=== PATIENT | female | born 1955 | race Caucasian/White ===

== ENCOUNTER → 2018-04-30 11:50 | Outpatient (CLI) | payer OTHER, SELFPAY ==
[2018-04-30 13:18] LABS: BUN Creatinine Ratio 21.4 (6-22); Blood Urea Nitrogen 15 mg/dL (7-17); Calcium 9.9 mg/dL (8.4-10.2); Carbon Dioxide 30 mmol/L (22-32); Chloride 104 mmol/L (98-107); Estimated Glomerular Filt Rate > 60.0 mL/min (>60); Glucose 105 mg/dL (80-110); HEMOLYSIS < 15 (0-50); Potassium 4.3 mmol/L (3.4-5.1); Sodium 143 mmol/L (137-145)
[2018-04-30 13:50] LABS: TSH w/ Reflex to FT4 1.32 uIU/mL (0.47-4.68)
== END ==
PROVIDERS: PCP Family Medicine; Visit Provider Family Medicine
DX: I10 Essential (primary) hypertension (principal)
CPT/HCPCS: 36415; 80048; 84443

== ENCOUNTER → 2020-06-05 09:25 | Outpatient (CLI) | payer OTHER, SELFPAY ==
[2020-06-05 10:40] LABS: Add Manual Diff / Slide Review NO; Basophils Absolute Auto 100 /uL (0-100); Basophils Percent Auto 0.9 % (0-2); Eosinophils Absolute Auto 100 /uL (0-450); Eosinophils Percent Auto 1.7 % (2-4); Hematocrit 38.9 % (36-46); Lymphocytes Absolute Auto 1900 /uL (1100-4500); Lymphocytes Percent Auto 32.5 % (25-40); Mean Corpuscular HGB Conc 33.4 % (30-36); Mean Corpuscular Hemoglobin 31.6 PG (26-34); Mean Corpuscular Volume 94.5 fL (80-100); Monocytes Absolute Auto 400 /uL (0-900); Monocytes Percent Auto 6.6 % (3-14); Neutrophils Absolute Auto 3300 /uL (1500-7000); Neutrophils Percent Auto 58.3 % (50-75); Platelet Count 303 X10^3/uL (150-400); Red Blood Cell Count 4.12 X10^6/uL (4.0-5.2); Red Cell Distribution Width 13.6 % (11.6-14.8); White Blood Cell Count 5.7 X10^3/uL (4.5-11.0)
[2020-06-05 10:48] LABS: Alanine Aminotransferase 32 IU/L (<35); Albumin 4.5 g/dL (3.5-5.0); Albumin Globulin Ratio 1.6 (1.0-2.8); Alkaline Phosphatase 83 U/L (38-126); Aspartate Aminotransferase 37 IU/L (14-36); BUN Creatinine Ratio 12.3 (6-22); Bilirubin Total 0.4 mg/dL (0.2-1.3); Blood Urea Nitrogen 9 mg/dL (7-17); Calcium 9.5 mg/dL (8.4-10.2); Carbon Dioxide 29 mmol/L (22-32); Chloride 104 mmol/L (98-107); Estimated Glomerular Filt Rate > 60.0 mL/min (>60); Globulin 2.8 g/dL (1.7-4.1); Glucose 160 mg/dL (80-110); HEMOLYSIS < 15 (0-50); Potassium 4.2 mmol/L (3.4-5.1); Sodium 138 mmol/L (137-145); Total Protein 7.3 g/dL (6.3-8.2)
[2020-06-05 11:32] LABS: TSH w/ Reflex to FT4 1.51 uIU/mL (0.47-4.68)
[2020-06-08 16:10] LABS: Hemoglobin A1C% w Est Avg Glu 5.9 % (4.0-6.0)
== END ==
PROVIDERS: PCP Family Medicine; Referring Provider Family Medicine; Visit Provider Family Medicine
DX: E66.3 Overweight (principal); I10 Essential (primary) hypertension
CPT/HCPCS: 36415; 80053; 83036; 84443; 85025

== ENCOUNTER → 2020-06-21 09:15 | Outpatient (CLI) | payer OTHER, SELFPAY ==
--- NOTE | 2020-06-21 09:17 | DI.US.S_ITS ---
PROCEDURE: US ABDOMEN LIMITED INDICATIONS: RIGHT UPPER QUADRANT PAIN TECHNIQUE: Real-time focused scanning was performed of the abdomen, with image documentation. COMPARISON: None. FINDINGS: The liver is normal in size and demonstrates no focal lesions. No findings of gallstones or sludge are seen. The gallbladder wall is not thickened, measuring 3 mm or less. No specific pericholecystic fluid is seen. The sonographic Mayfield sign is negative. There is no biliary dilatation, the common bile duct measures 4 mm. No significant pancreatic abnormality is seen on these images. No right upper quadrant free fluid can be seen. IMPRESSION: The gallbladder demonstrates a normal sonographic appearance. No biliary dilatation is seen. Dictated by: Monroe Mendoza M.D. on 06/21/2020 at 9:58 Approved by: Monroe Mendoza M.D. on 06/21/2020 at 9:58
== END ==
PROVIDERS: PCP Family Medicine; Referring Provider Surgery; Visit Provider Surgery
DX: R10.11 Right upper quadrant pain (principal); K82.4 Cholesterolosis of gallbladder
CPT/HCPCS: 76705

== ENCOUNTER → 2020-07-05 09:17 | Outpatient (CLI) | payer OTHER, SELFPAY ==
[2020-07-05 10:53] LABS: COVID19 -Nasal RAPID Negative (Negative)
== END ==
PROVIDERS: PCP Family Medicine; Visit Provider Surgery
DX: Z20.822 Contact with and (suspected) exposure to COVID-19 (principal)
CPT/HCPCS: 87635; C9803

== ENCOUNTER 2020-07-06 08:07 | Day surgery (SDC) | payer OTHER, SELFPAY ==
[2020-07-06] VITALS (7 sets, daily range): BP systolic 86–153; BP diastolic 52–85; PULSE 59–85; RESP 12–20; TEMP 36.1–36.6; O2SAT 97–100; BMI 30.9
--- NOTE | 2020-07-06 | PATH_ITS ---
[facility] Accession Number: [id number] . 01 Material submitted: . PART A: duodenum - DUODENUM PART B: stomach - STOMACH PART C: esophagus - ESOPHAGUS PART D: colon - RANDOM COLON PART E: colon - 70CM COLON POLYP PART F: colon - 50CM COLON POLYP PART G: colon - 20CM COLON POLYP . 02 Diagnosis: A. Duodenum, Biopsy: Duodenal mucosa with no diagnostic abnormality. Negative for active inflammation, features of sprue, dysplasia, or malignancy. . B. Stomach, Biopsy: Antral and body-type mucosa with no diagnostic abnormality. No evidence of Helicobacter on H/E stain. Negative for intestinal metaplasia. Negative for dysplasia and malignancy. . C. Esophagus, Biopsy: Squamous epithelium with no diagnostic abnormality. Intraepithelial eosinphils are not increased. Negative for dysplasia and malignancy. . D. Random Colon, Biopsies: Colonic mucosa with no diagnostic abnormality. Negative for active, chronic, and microscopic colitis. Negative for dysplasia and malignancy. . E. Colon, Polyp 70 cm, Biopsy: Serrated lesion, favor sessile serrated adenoma. . F. Colon, Polyp 50 cm, Biopsy: Tubular adenoma. . G. Colon, Polyp 20 cm, Biopsy: Hyperplastic polyp. [facility] 07/11/2020 1409 Local . 02 Electronically signed: . Svetlana Green MD, Pathologist NPI- [id number] . 01 Gross description: . Part A: DUODENUM: Received in formalin is 1 fragment(s) of pandey, soft tissue measuring 0.4 x 0.2 x 0.2 cm submitted entirely in 1 cassette(s) Part B: STOMACH: Received in formalin are 4 fragment(s) of pandey, soft tissue measuring 0.1 x 0.1 x 0.1 cm to 0.2 x 0.2 x 0.2 cm submitted entirely in 1 cassette(s) Part C: ESOPHAGUS: Received in formalin is 1 fragment(s) of pandey, soft tissue measuring 0.3 x 0.2 x 0.2 cm submitted entirely in 1 cassette(s) Part D: RANDOM COLON: Received in formalin is 1 fragment(s) of pandey, soft tissue measuring 0.1 x 0.1 x 0.1 cm to 0.3 x 0.2 x 0.2 cm submitted entirely in 1 cassette(s) Part E: 70CM COLON POLYP: Received in formalin are 2 fragment(s) of pandey, soft tissue measuring 0.2 x 0.2 x 0.2 cm to 03 x 0.2 x 0.2 cm submitted entirely in 1 cassette(s) Part F: 50CM COLON POLYP: Received in formalin is 1 fragment(s) of pandey, soft tissue measuring 0.3 x 0.2 x 0.2 cm submitted entirely in 1 cassette(s) Part CM COLON POLYP: Received in formalin is 1 fragment(s) of pandey, soft tissue measuring 0.2 x 0.2 x 0.2 cm submitted entirely in 1 cassette(s) /CINTHIA 07/09/2020 1758 Local . 02 Pathologist provided ICD-10: D12.6 . 02 CPT . 386967, 054737, 316700, 051141, 517119, 505776, 601443 Performed at: 01 [facility] [address] [id number] MD Ciro Santiago MD Phone: [phone] Performed at: [address] [place], [place] [id number] MD Svetlana Green MD Phone: [phone]
[2020-07-06] MEDS: SODIUM CHLORIDE 0.9% 1,000 ML 200 ML IV (08:16)
--- NOTE | 2020-07-06 10:46 | PM.PREOP ---
Pre-operative Note COVID-19 COVID-19 status: Negative Result date/Date tested (Pos, Neg/Pending): 07/05/20 Interval Note History & Physical reviewed/Exam performed by Physician: Yes Changes to H&P: No ASA Class (for procedural sedation): II
--- NOTE | 2020-07-06 10:48 | PM.OP.ENDO ---
Operative Date/Time/Diagnoses Date of procedure: 07/06/20 Time of procedure: 10:48 Pre-op diagnosis: epigastric pain, change in bowel habits Post-op diagnosis: other (Evidence of duodenitis and gastritis, without specific ulcers. Multiple polyps throughout the colon.) Procedure & Clinicians Study performed: Esophagogastroduodenoscopy Colonoscopy Procedural sedation performed by the endoscopist Biopsies of duodenum, stomach, and esophagus with standard ports Polypectomy times 3 with Jumbo forceps Random biopsies of the colon to rule out microscopic colitis Same procedure as scheduled: Yes Indications: Epigastric pain, change in bowel habit Surgeon: Chrissie Aparicio Procedure Notes SCOAP/Timeout: Performed Procedure in detail: The patient was brought to the room and placed in left lateral decubitus position with all bony prominences padded. A bite block was positioned in the patient's mouth to protect the lips, teeth, and tongue for the procedure. A time-out was performed and then the patient was given procedural sedation starting with 2 mg of Versed and [100] mcg of fentanyl. Vitals were monitored throughout the procedure and remained stable. Once adequately sedated, the procedure was begun. The lubricated gastroscope was passed through the bite block and across the tongue and into the esophagus without incident. A tubular view of the esophagus was maintained as the scope was advanced through the esophagus and into the stomach. The scope was advanced through the stomach and to the pylorus. The scope was gently popped through the pylorus and into the duodenal bulb. The scope was flexed and advanced into the second and third portions of the duodenum. The duodenum and duodenal bulb revealed mild endoscopic duodenitis. The scope was withdrawn into the stomach. The stomach revealed mild endoscopic gastritis. The scope was retroflexed and the gastric cardia was examined. The hiatus [appeared normal]. The scope was then straightened, and withdrawn into the esophagus. The Z-line [appeared normal]. The distal esophagus [appeared normal]. The scope was then withdrawn through the esophagus with a tubular view. The scope was then withdrawn from the patient and attention was turned to the colonoscopy portion of the procedure. A rectal exam was performed revealing no abnormalities. The colonoscope was then introduced to the rectum and advanced to the cecum in the usual fashion. The cecum was identified by the appendiceal orifice, the mucosal tri-fold, and the ileocecal valve. The scope was then retracted while rotating side to side and examining each mucosal fold. Three polyps were found, 1 at 70 cm, 1 at 50 cm, and 1 at 20 cm. Each was removed with Jumbo forceps. Random biopsies were taken throughout the colon to rule out microscopic colitis, using Jumbo forceps. At the conclusion of the procedure retroflexion was performed and small grade 1-2 internal hemorrhoids without stigmata of bleeding were seen. The scope was then withdrawn from the rectum the procedure was concluded. A total of 5 mg of Versed and 100 micro g of fentanyl were given for the entire procedure. The patient tolerated the procedure well and was transferred to the PACU in stable condition. Scope withdrawal time: 20 Sedation minutes: 51 Findings: gastritis and polyp Specimen(s): other (Biopsies of stomach, duodenum, and distal esophagus. Random biopsies of the colon to rule out microscopic colitis. Polypectomy x3.) Complications: none Impression: Inflammation of the duodenum and stomach, 3 small polyps. Post-procedure Recommendations: Colonscopy in 5 years (Depending on pathology results) and Other recommendation (Continue famotidine daily, consider omeprazole if symptoms persist on famotidine.) Follow up: weeks (Follow-up to discuss biopsy results, and other studies.) Disposition: PACU
[2020-07-06] MEDS: fentaNYL 250 MCG/5 ML INJ IV (10:51)
[2020-07-06] MEDS: MIDAZOLAM 5 MG/5 ML VIAL IV (11:10)
[2020-07-06] MEDS: LIDOCAINE 4% SOLN 50 ML 20 ML TOP (11:24)
== END 2020-07-06 12:37 | disposition home or self-care (01) ==
PROVIDERS: PCP Family Medicine; Referring Provider Family Medicine; Visit Provider Surgery
PROC: 0DJ08ZZ Inspection of Upper Intestinal Tract, Via Natural or Artificial Opening Endoscopic (ICD-10-PCS; CPT 43235; principal; 2020-07-06 09:15)
PROC: 0DJD8ZZ Inspection of Lower Intestinal Tract, Via Natural or Artificial Opening Endoscopic (ICD-10-PCS; CPT 45378; 2020-07-06 09:15)
DX: R19.4 Change in bowel habit (principal); R10.13 Epigastric pain; J45.909 Unspecified asthma, uncomplicated; I10 Essential (primary) hypertension; K29.50 Unspecified chronic gastritis without bleeding; K29.80 Duodenitis without bleeding; K64.0 First degree hemorrhoids; D12.6 Benign neoplasm of colon, unspecified
CPT/HCPCS: 45380; 43239; 99152; 99153; J2250; J3010

== ENCOUNTER → 2020-07-13 07:34 | Outpatient (CLI) | payer OTHER, SELFPAY ==
--- NOTE | 2020-07-13 07:35 | DI.NM.S_ITS ---
PROCEDURE: NM HIDA WITH CCK PHARMACEUTICAL: 5.1 mCi Tc-99m mebrofenin IV; 1.5 mcg CCK IV. INDICATIONS: biliary colic, no gall stones TECHNIQUE: Following intravenous administration of Tc-99m mebrofenin, sequential anterior abdominal images were obtained. To evaluate the contractile response of the gallbladder in response to Cholecystokinin (CCK), sincalide (0.02 ?g/kg) was administered by slow intravenous infusion approximately 60 minutes after the administration of the radiopharmaceutical. Sequential imaging was continued for 30 minutes after the start of CCK infusion. Gallbladder ejection fraction was calculated. COMPARISON: [facility], ABDOMEN LIMITED, 06/21/2020, 9:29. FINDINGS: Biliary scan: There is normal tracer uptake and excretion by the liver. There is normal visualization of the intrahepatic ducts, common bile duct, and gallbladder. There is normal tracer transit into the duodenum. CCK stimulation: There is normal contractile response of the gallbladder to CCK infusion. The calculated gallbladder ejection fraction is 100%; normal values are above 35%. It has been shown that any patient abdominal pain after CCK administration is related to the rate of CCK injection, rather than to any underlying gallbladder disease (Clinical Nuclear Medicine 2012; 37: 63-70. Journal of Nuclear Medicine 2014; 55: 1-9). IMPRESSION: 1. Normal filling of gallbladder. No evidence for acute cholecystitis. 2. Normal contractile response of gallbladder to CCK stimulation. Dictated by: Morgan Hooker M.D. on 07/13/2020 at 9:52 Approved by: Morgan Hooker M.D. on 07/13/2020 at 9:53
== END ==
PROVIDERS: PCP Family Medicine; Referring Provider Family Medicine; Visit Provider Surgery
DX: R10.11 Right upper quadrant pain (principal)
CPT/HCPCS: 78227; A9537; J2805

== ENCOUNTER → 2020-07-24 10:41 | Outpatient (CLI) | payer OTHER, SELFPAY ==
--- NOTE | 2020-07-24 10:41 | DI.RAD.S_ITS ---
PROCEDURE: FL BARIUM SWALLOW W AIR COMPARISON: None. INDICATIONS: Dysphagia, epigastric pain FINDINGS: There is severe esophageal dysmotility. Delayed esophageal clearance. There is suggestion of early feline appearance of the esophageal mucosa which can be seen in setting of gastroesophageal reflux. No stricture identified. There is occasional retropulsion of contrast within the esophagus. No spontaneous gastroesophageal reflux was observed. No hiatal hernia identified. IMPRESSION: Severe esophageal dysmotility. Dictated by: Johnathon Collins M.D. on 07/24/2020 at 11:48 Approved by: Johnathon Collins M.D. on 07/24/2020 at 11:52
== END ==
PROVIDERS: PCP Family Medicine; Referring Provider Surgery; Visit Provider Surgery
DX: R13.10 Dysphagia, unspecified (principal); R10.13 Epigastric pain; K22.4 Dyskinesia of esophagus
CPT/HCPCS: 74221

== ENCOUNTER → 2020-08-01 08:02 | Outpatient (CLI) | payer OTHER, SELFPAY ==
[2020-08-01] MEDS: COVID-19 VACC, Ad26(JANSSEN)/PF 0.5 ML IM (08:13)
== END ==
PROVIDERS: PCP Family Medicine; Visit Provider Internal Medicine
DX: Z23 Encounter for immunization (principal)
CPT/HCPCS: 0031A; 91303

== ENCOUNTER → 2020-09-07 09:26 | Outpatient (CLI) | payer OTHER, SELFPAY ==
[2020-09-07 11:26] LABS: COVID19 -Nasal RAPID Negative (Negative)
== END ==
PROVIDERS: PCP Family Medicine; Visit Provider Surgery
DX: Z20.822 Contact with and (suspected) exposure to COVID-19 (principal)
CPT/HCPCS: 87635; C9803

== ENCOUNTER → 2020-09-12 10:09 | Outpatient (CLI) | payer OTHER, SELFPAY ==
[2020-09-12 11:19] LABS: COVID19 -Nasal RAPID Negative (Negative)
== END ==
PROVIDERS: PCP Family Medicine; Visit Provider Surgery
DX: Z20.822 Contact with and (suspected) exposure to COVID-19 (principal); Z01.812 Encounter for preprocedural laboratory examination
CPT/HCPCS: 87635; C9803

== ENCOUNTER 2020-09-13 11:57 | Day surgery (SDC) | payer OTHER, SELFPAY ==
[2020-09-13] VITALS (19 sets, daily range): BP systolic 97–160; BP diastolic 60–84; PULSE 57–81; RESP 8–18; TEMP 36.1–37.1; O2SAT 93–99; BMI 31.1
--- NOTE | 2020-09-13 | PATH_ITS ---
[facility] Accession Number: [id number] . 01 Material submitted: . gallbladder - GALLBLADDER AND CONTENTS . 02 Diagnosis: Gallbladder, Cholecystectomy: Chronic cholecystitis. No calculi identified. Negative for dysplasia and malignancy. [facility] 09/19/2020 1214 Local . 02 Electronically signed: . Svetlana Green MD, Pathologist NPI- [id number] . 01 Gross description: . Received in formalin, labeled with the patient's name and gallbladder and contents, is a 7.0 x 3.0 x 3.0 cm intact gallbladder, clip at cystic duct margin, margin inked blue. No calculi identified within the gallbladder or container. Gallbladder mucosa is green, velvety. Wall thickness up to 0.2 cm. Java Swing Developer sections submitted. . SUMMARY OF SECTIONS: A1. Gallbladder and cystic duct margin, five pieces. ([id number]) /FRR 09/15/20202008 Local . 02 Pathologist provided ICD-10: K81.1 . 02 CPT . 232552 Performed at: 01 [facility] [address] [place] [address], [place], [place] [id number] MD Ciro Santiago MD Phone: [phone] Performed at: 02 [facility] [address] [place], [place] [id number] MD Svetlana Green MD Phone: [phone]
--- NOTE | 2020-09-13 12:40 | P.HP_ITS ---
History of Present Illness History of Present Illness Date Patient Seen: 09/13/20 Time Patient Seen: 12:40 Chief complaint: [facility] Narrative: This is a 65 yo woman with history of multiple GI symptoms for many decades. She describes a history of heartburn, and postprandial epigastric/substernal pain. She recently had an EGD, which showed some mild endoscopic gastritis, and biopsies of duodenum, stomach, and distal esophagus that were normal. She has some persistent right upper quadrant pain, which intermittently becomes more severe. She says she does not eat much fat her diet, and cannot correlate an increase in her pain with particular foods. She says she additionally has a history of migraines, asthma, IBS, hypertension, and Meniere's disease. She recently had a HIDA scan which shows an ejection fraction of 100%. She had a right upper quadrant ultrasound which shows no gallstones, and otherwise normal biliary anatomy. She had a barium swallow since her last visit here, which shows severe esophageal dysmotility. ROS: Positive for 20 lb weight gain over the past year. Leg swelling, palpitations, abdominal pain, constipation, diarrhea, reflux symptoms, postprandial vomiting, decreased exercise tolerance, muscle aches, numbness, easy bruising. Thirteen system review is otherwise negative other than as mentioned below and in HPI. PE: GENERAL: Well groomed and cooperative. Appears stated age. Answers questions promptly and appropriately. Vital signs noted. HENT: Normocephalic, atraumatic. Hearing intact. EYES: Conjunctiva pink, sclera white, no periorbital swelling. CARDIOVASCULAR: Regular rate. No pedal edema. RESPIRATORY: Non-tachypneic, breathing comfortably on room air. GASTROINTESTINAL: Abdomen soft and non-distended GENITALURINARY: No flank tenderness. MUSCULOSKELETAL: Equal tone and mass bilaterally. SKIN: Warm, dry, soft, appropriate color for ethnicity. No other lesions, rashes, or wounds. NEURO: Alert and Oriented X 3. No gross sensory deficits, or cognitive issues. PSYCH: Appropriate affect and mood. Patient History Medical History (Updated 08/31/20 @ 12:45 by Ruby Johnson RN) Asthma Hypertension IBS (irritable bowel syndrome) Menieres disease Migraine with aura Obesity (BMI 30.0-34.9) Seasonal allergies Tonsillectomy planned Surgical History (Updated 08/31/20 @ 12:46 by Ruby Johnson RN) History of esophagogastroduodenoscopy (EGD) History of tubal ligation Family & Social History Family History Grandfather Bone cancer Mother Heart disease Dystonia Social History: household members spouse,family lives independently Yes Tobacco & Substance use: Smoking Status Never smoker alcohol intake current alcohol intake frequency 0-2 drinks per day Substance Use Type does not use Meds Home Medications and Allergies Home Medications Medication Instructions Recorded Confirmed Type cyanocobalamin (vitamin B-12) 5,000 mcg PO DAILY 06/14/20 08/31/20 History 5,000 mcg capsule lactobacillus combination no.9 4 4,000 mmu cells PO DAILY 06/14/20 08/31/20 His tory billion cell capsule lisinopril 5 mg tablet See Rx Instructions .ROUTE 08/20/20 08/31/20 Rx .COMPLEX #30 tab Allergies Allergy/AdvReac Type Severity Reaction Status Date / Time codeine [CODEINE] Allergy Intermediate Verified 08/31/20 12:40 Penicillins [PENICILLINS] Allergy Intermediate Verified 08/31/20 12:40 Sulfa (Sulfonamide Allergy Intermediate Verified 08/31/20 12:40 Antibiotics) [SULFA (SULFONAMIDE ANTIBIOTICS)] Objective Imaging HIDA: Radiologist's impression: Objective Data Objective Data: [address] [id number] Medicine ReportSigned Patient: Shanthi Sorensen LMR#: [id number]: 5Acct:[id number]/Sex: 65 / FDate of Service: 07/13/20Loc: NUCMAccession Number: [id number] Procedure: NM HIDA with cck Ordering Provider: Chrissie Aparicio MD PROCEDURE: NM HIDA WITH CCK PHARMACEUTICAL: 5.1 mCi Tc-99m mebrofenin IV; 1.5 mcg CCK IV. INDICATIONS: biliary colic, no gall stones TECHNIQUE: Following intravenous administration of Tc-99m mebrofenin, sequential anterior abdominal images were obtained. To evaluate the contractile response of the gallbladder in response to Cholecystokinin (CCK), sincalide (0.02 ?g/kg) was administered by slow intravenous infusion approximately 60 minutes after the administration of the radiopharmaceutical. Sequential imaging was continued for 30 minutes after the start of CCK infusion. Gallbladder ejection fraction was calculated. COMPARISON: [facility], ABDOMEN LIMITED, 06/21/2020, 9:29. FINDINGS: Biliary scan: There is normal tracer uptake and excretion by the liver. There is normal visualization of the intrahepatic ducts, common bile duct, and gallbladder. There is normal tracer transit into the duodenum. CCK stimulation: There is normal contractile response of the gallbladder to CCK infusion. The calculated gallbladder ejection fraction is 100%; normal values are above 35%. It has been shown that any patient abdominal pain after CCK administration is r elated to the rate of CCK injection, rather than to any underlying gallbladder disease (Clinical Nuclear Medicine 2012; 37: 63-70. Journal of Nuclear Medicine 2014; 55: 1-9). IMPRESSION: 1. Normal filling of gallbladder. No evidence for acute cholecystitis. 2. Normal contractile response of gallbladder to CCK stimulation. Dictated by: Morgan Hooker M.D. on 07/13/2020 at 9:52 Assessment & Plan Assessment and plan (1) Abnormal biliary HIDA scan: Problem details: EF of 100% in a symptomatic person is consistent with biliary hyperkinesia Status: Acute (2) Obesity (BMI 30.0-34.9): Status: Acute (3) RUQ abdominal pain: Status: Acute Assessment & Plan narrative: This is a 65-year-old woman with biliary hyperkinesia with an abnormal HIDA scan showing EF of 100%. Risks and benefits of laparoscopic possible open cholecystectomy were discussed with the patient including risk of bleeding, infection, damage to nearby structures, need for additional procedures, bile duct injury, bile leak, need for open surgery, need for transfer to a tertiary center, ongoing symptoms. The patient desires to proceed with laparoscopic possible open cholecystectomy procedure. Plan: Proceed to OR for laparoscopic cholecystectomy COVID-19 COVID-19 status: Negative Result date/Date tested (Pos, Neg/Pending): 09/12/20 Time Spent With Patient Time with patient: 15-24 minutes Quality VTE Deep Vein Thrombosis/Pulmonary Embolism Present on Admission: No
[2020-09-13] MEDS: LACTATED RINGERS 1,000 ML 100 ML IV ×2 (12:45→15:32)
[2020-09-13] MEDS: levoFLOXacin 500 MG/100 ML PIGGYBACK 100 MG IV (13:20)
--- NOTE | 2020-09-13 13:43 | SUR.OPER ---
Supine on padded OR bed, head on pillow, safety belt at thigh, bilateral arms secured on padded armboard <90 degrees abduction. Legs uncrossed. Padded footboard in place. Tape over blanket to secure lower legs.
[2020-09-13] MEDS: BUPIVACAINE 0.25% W/ EPI 30 ML VIAL INJ (13:49)
--- NOTE | 2020-09-13 14:23 | P.OP_ITS ---
Operative Date/Time/Diagnoses Date of procedure: 09/13/20 Time of procedure: 14:23 Pre-op diagnosis: Biliary colic, abnormal HIDA scan Post-op diagnosis: same Procedure & Clinicians Procedure: Laparoscopic cholecystectomy Indocyanine green cholangiography Same procedure as scheduled: Yes Indications: Biliary colic, abnormal HIDA scan Surgeon: Chrissie Aparicio Click Yes if Unassisted: Yes Anesthesia Type: General Operative Notes Findings: Flaccid gallbladder with adherent omentum and hypervascularity Specimen(s): other (Gallbladder and contents) Estimated Blood Loss (mL): 2 Blood products transfused: none Procedure in detail: The patient was brought into the operating room and placed supine on the OR table. Sequential compression devices were placed on both legs and turned on. Appropriate perioperative antibiotics were given prior to the start of surgery. General anesthesia was induced the patient was intubated. The abdomen was prepped and draped in sterile fashion. Surgical time-out was conducted. Local anesthetic was injected under the skin just superior to the umbilicus and a 5 mm vertical incision was made at this site. The umbilical stalk was grasped with a Verna and elevated. A Veress needle was passed through the fascia into proper position. The position was tested with a saline drop test which was appropriate for intra-abdominal Veress needle placement. The abdomen was then insufflated in the usual fashion. Once insufflated to 15 mm Hg the Veress needle was removed and a 5 mm optical trocar was placed under direct vision using a 5 mm 30 degree scope. Once the camera was inside the abdomen I took a look around. There was no injury from port placement. Two additional ports were placed in a similar fashion in the right upper quadrant and a 10 mm port was placed in the epigastrium. Through the 2 lateral ports the gallbladder was grasped and elevated and the infundibulum was retracted laterally to the patient's right. This exposed the gallbladder hilum and allowed for dissection of the cystic duct and cystic artery. There were some inflammatory adhesions of omentum to the gallbladder fundus. These were taken down with hook cautery. At this point dissection of the gallbladder hilum was undertaken, and adhesions were taken down from the infundibulum and the surface of the cystic duct and artery. Indocyanine green cholangiography was used to identify the cystic duct and common bile duct. Both were easily seen, and the common bile duct was well away from the area of dissection. Once the cystic duct and artery were completely dissected out I was able to see liver behind and between both structures without any other structures in the way, giving us the critical view of safety. At this point I triply clipped both structures on the patient's side and put a single clip on the gallbladder side of both the cystic duct and artery. Both structures were then divided with laparoscopic [place]. Following this the gallbladder was gradually dissected free from the liver. There was quite a bit of hypervascularity of the scar tissue between the gallbladder and the liver. Several small vessels had to be controlled with cautery. Once the gallbladder was entirely freed, it was placed inside an Endo- Catch bag and removed through the epigastric port site. I did not have to enlarge the epigastric port site in order to get the gallbladder out. Once it was out and passed off to the back table I then took another look inside the abdomen. There was no pooled blood or fluid in the gallbladder fossa appeared hemostatic. There was no active bleeding or leaking of bile from the gallbladder fossa or from the clipped stumps of the cystic duct and artery. At this point an O vicryl on a Zechariah Jourdan suture passer was used to close the epigastric port site in the fascia. Insufflation was then removed from the abdomen. A 3 O Vicryl was used to close the subcutaneous layers, and 4 Monocryl in the skin. Additional local anesthetic was infiltrated into each port site. Each port site was sealed with Dermabond. This concluded the procedure. At this point the needle sponge and instrument counts were correct. The gallbladder was passed off the table for pathology. Patient was awakened from anesthesia and extubated. She was transferred to the postanesthesia care unit in stable condition. Complications: none Post-operative Condition: stable Disposition: PACU
[2020-09-13] MEDS: ONDANSETRON 4 MG/2 ML INJ IV (14:49)
[2020-09-13] MEDS: OXYCODONE/ACETAMINOPHEN 5/325 TABLET 1 TAB PO (14:59)
[2020-09-13] MEDS: SCOPOLAMINE 1 PATCH TOP (15:32)
[2020-09-13] MEDS: METOCLOPRAMIDE 10 MG/2 ML INJ IV (15:40)
--- NOTE | 2020-09-13 15:53 | SUR.PHASEII ---
Addendum entered by Allie Fernández R.N. 09/13/20 17:01: REPORT GIVEN TO MICHAEL CHRISTIANSON RN Addendum entered by Allie Fernández R.N. 09/13/20 16:08: PATIENT REPORTS HX OF MIGRAINES W/ AURA AND WITH COMPLICATIONS IN THE PAST. STATES IN THE PAST SHE HAD NUMBNESS ON ONE SIDE OF HER BODY THAT LASTED A MONTH. DENIES HEADACHE CURRENTLY, STATES FEELS LIKE HER USUAL PRODROMAL SYMPTOMS AT PRESENT, DID HAVE SPOTTY VISION BRIEFLY WHICH HAS CLEARED. STATES NAUSEA IS BETTER NOW, BUT STILL COMES IN WAVES. STATES PAIN REMAINS TOLERABLE DESCRIBED DISCOMFORT 09/01. Original Note: PACU PATIENT C/O NAUSEA WITH ANY SUBTLE HEAD OR BODY MVMT. ZOFRAN INEFFECTIVE, GIVEN PAM, DR. ROMAN AWARE AT BEDSIDE. THEN DRY HEDEJON NOTED, NOTIFIED DR. ALCALA, OBTAINED ORDER FOR SCOLP PATCH AND REGLAN WHICH WERE GIVEN. PATIENT HAD APPROX 50CC'S YELLOW EMESIS. 2CD LITER OF LR INFUSING WIDE OPEN, WILL CONTINUE TO MONITOR.
--- NOTE | 2020-09-13 17:02 | SUR.PHASEII ---
Repzina from Allie Batres. Up to sit on the edge of bed with emesis. Spoke with Dr España and Dr Aparicio in OR 4. New order for ativan at this time.
[2020-09-13] MEDS: LORazepam 2 MG/ML INJ 0.5 MG IV (17:07)
--- NOTE | 2020-09-13 17:43 | SUR.PHASEII ---
SBAR report to Alayna RN at bedside.
== END 2020-09-13 18:15 | disposition home or self-care (01) ==
LOC: OR 12:00
PROVIDERS: PCP Family Medicine; Referring Provider Surgery; Visit Provider Surgery
PROC: 0FT44ZZ Resection of Gallbladder, Percutaneous Endoscopic Approach (ICD-10-PCS; CPT 47562; principal; 2020-09-13 13:00)
DX: K81.1 Chronic cholecystitis (principal); I10 Essential (primary) hypertension; J45.20 Mild intermittent asthma, uncomplicated; K58.9 Irritable bowel syndrome, unspecified; H81.09 Meniere's disease, unspecified ear; E66.9 Obesity, unspecified; K66.0 Peritoneal adhesions (postprocedural) (postinfection)
CPT/HCPCS: 47563; 82962; J1100; J1885; J1956; J2060; J2250; J2405; J2704; J2765; J3010

== ENCOUNTER → 2020-11-08 08:17 | Outpatient (CLI) | payer OTHER, SELFPAY ==
--- NOTE | 2020-11-08 | DI.RAD.S_ITS ---
PROCEDURE: XR CHEST 2V INDICATIONS: dysphagia TECHNIQUE: 2 views of the chest were acquired. COMPARISON: None. FINDINGS: Surgical changes and devices: None. Lungs and pleura: Lungs are clear. No pleural effusions or pneumothorax. Mediastinum: Mediastinal contours are normal. Heart size is normal. Bones and chest wall: No suspicious bony abnormalities. Soft tissues appear unremarkable. IMPRESSION: Normal for age, source of current dysphagia symptoms is not seen. Dictated by: Delvis Sarabia M.D. on 11/08/2020 at 9:37 Approved by: Delvis Sarabia M.D. on 11/08/2020 at 9:38
== END ==
PROVIDERS: PCP Family Medicine; Referring Provider Internal Medicine; Visit Provider Internal Medicine
DX: R13.10 Dysphagia, unspecified (principal)
CPT/HCPCS: 71046

== ENCOUNTER → 2021-09-26 16:07 | Outpatient (CLI) | payer OTHER, SELFPAY ==
--- NOTE | 2021-09-26 16:10 | DI.MG.S_ITS ---
BILATERAL DIGITAL SCREENING MAMMOGRAM 3D/2D WITH CAD: 09/26/2021 CLINICAL: Routine screening. Comparison is made to exams dated: 05/30/2016 mammogram and 06/17/2005 mammogram - [facility]. There are scattered fibroglandular elements in both breasts. Current study was also evaluated with a Computer Aided Detection (CAD) system. No significant masses, calcifications, or other findings are seen in either breast. There has been no significant interval change. IMPRESSION: NEGATIVE There is no mammographic evidence of malignancy. A 1 year screening mammogram is recommended. This exam was interpreted at Station ID: [id number]. NOTE: For mammograms, a report in lay terms will be sent to the patient. Approximately 15% of breast malignancies will not be visualized mammographically. In the management of a palpable breast mass, a negative mammogram must not discourage biopsy of a clinically suspicious lesion. Electronically Signed By: Grady hadley/marjorie:09/27/2021 08:17:59 letter sent: Normal Exam ACR BI-RADS Category 1: Negative 3341F
== END ==
PROVIDERS: PCP Family Medicine; Referring Provider Family Medicine; Visit Provider Family Medicine
DX: Z12.31 Encounter for screening mammogram for malignant neoplasm of breast (principal)
CPT/HCPCS: 77063; 77067

== ENCOUNTER → 2021-10-03 07:50 | Outpatient (CLI) | payer OTHER, SELFPAY ==
[2021-10-03 11:06] LABS: Alanine Aminotransferase 23 IU/L (<35); Albumin 4.4 g/dL (3.5-5.0); Albumin Globulin Ratio 1.6 (1.0-2.8); Alkaline Phosphatase 78 U/L (38-126); Aspartate Aminotransferase 28 IU/L (14-36); BUN Creatinine Ratio 16.5 (6-22); Bilirubin Total 0.9 mg/dL (0.2-1.3); Blood Urea Nitrogen 14 mg/dL (7-17); Calcium 9.4 mg/dL (8.4-10.2); Carbon Dioxide 28 mmol/L (22-32); Chloride 105 mmol/L (98-107); Cholesterol 274 mg/dL (140-199); Estimated Glomerular Filt Rate > 60 mL/min (>60); Globulin 2.8 g/dL (1.7-4.1); Glucose 110 mg/dL (80-110); HDL Cholesterol 91 mg/dL (40-60); HEMOLYSIS < 15 (0-50); LDL Cholesterol Calculated 166 mg/dL (<100); Sodium 139 mmol/L (137-145); Total Protein 7.2 g/dL (6.3-8.2); Triglycerides 85 mg/dL (35-150)
== END ==
PROVIDERS: PCP Family Medicine; Referring Provider Family Medicine; Visit Provider Family Medicine
DX: I10 Essential (primary) hypertension (principal); Z13.220 Encounter for screening for lipoid disorders
CPT/HCPCS: 36415; 80053; 80061

== ENCOUNTER → 2021-10-15 15:18 | Outpatient (CLI) | payer OTHER, SELFPAY | PROVIDERS: PCP Family Medicine; Referring Provider Family Medicine; Visit Provider Family Medicine | DX: Z13.820 Encounter for screening for osteoporosis (principal); Z78.0 Asymptomatic menopausal state; M81.0 Age-related osteoporosis without current pathological fracture | CPT/HCPCS: 77080 ==

== ENCOUNTER → 2023-01-01 07:47 | Outpatient (CLI) | payer OTHER, SELFPAY ==
--- NOTE | 2023-01-01 07:48 | DI.MG.S_ITS ---
BILATERAL DIGITAL SCREENING MAMMOGRAM 3D/2D WITH CAD: 01/01/2023 CLINICAL: Routine screening. Comparison is made to exams dated: 09/26/2021 mammogram, 05/30/2016 mammogram, and 06/17/2005 mammogram - [facility]. There are scattered areas of fibroglandular density in both breasts (category b / 25%-50% glandular tissue). Current study was also evaluated with a Computer Aided Detection (CAD) system. No significant masses, calcifications, or other findings are seen in either breast. There has been no significant interval change. IMPRESSION: NEGATIVE There is no mammographic evidence of malignancy. A 1 year screening mammogram is recommended. Based on the Tyrer Cuzick model (a risk assessment model) the patient's lifetime risk is 6.1% and her 10 year risk is 3.2%. According to the ACR, ACS, and NCCN guidelines, an annual breast MRI exam along with mammogram is recommended if the patient's lifetime risk is 20% or greater. This exam was interpreted at Station ID: [id number]. NOTE: For mammograms, a report in lay terms will be sent to the patient. Approximately 15% of breast malignancies will not be visualized mammographically. In the management of a palpable breast mass, a negative mammogram must not discourage biopsy of a clinically suspicious lesion. Electronically Signed By: Arlette sloan/marjorie:01/01/2023 10:54:14 letter sent: Normal Exam ACR BI-RADS Category 1: Negative 3341F
== END ==
PROVIDERS: PCP Physician Assistant; Referring Provider Physician Assistant; Visit Provider Physician Assistant
DX: Z12.31 Encounter for screening mammogram for malignant neoplasm of breast (principal)
CPT/HCPCS: 77063; 77067

== ENCOUNTER → 2024-01-13 13:12 | Outpatient (CLI) | payer MEDICARE, SELFPAY ==
--- NOTE | 2024-01-13 13:13 | DI.MG.S_ITS ---
BILATERAL DIGITAL SCREENING MAMMOGRAM 3D/2D WITH CAD: 01/13/2024 CLINICAL: Routine screening. Comparison is made to exams dated: 01/01/2023 mammogram, 09/26/2021 mammogram, and 05/30/2016 mammogram - [facility]. There are scattered areas of fibroglandular density in both breasts (category b / 25%-50% glandular tissue). Current study was also evaluated with a Computer Aided Detection (CAD) system. No significant masses, calcifications, or other findings are seen in either breast. There has been no significant interval change. IMPRESSION: NEGATIVE There is no mammographic evidence of malignancy. A 1 year screening mammogram is recommended. Based on the Tyrer Cuzick model (a risk assessment model) the patient's lifetime risk is 5.8% and her 10 year risk is 3.2%. According to the ACR, ACS, and NCCN guidelines, an annual breast MRI exam along with mammogram is recommended if the patient's lifetime risk is 20% or greater. This exam was interpreted at Station ID: [id number]. NOTE: For mammograms, a report in lay terms will be sent to the patient. Approximately 15% of breast malignancies will not be visualized mammographically. In the management of a palpable breast mass, a negative mammogram must not discourage biopsy of a clinically suspicious lesion. Electronically Signed By: Xochitl Roberson M.D., Ph.D. ronnie/marjorie:01/14/2024 09:49:20 letter sent: Normal Exam ACR BI-RADS Category 1: Negative 3341F
== END ==
PROVIDERS: PCP Student in an Organized Health Care Education/Training Program; Referring Provider Student in an Organized Health Care Education/Training Program; Visit Provider Student in an Organized Health Care Education/Training Program
DX: Z12.31 Encounter for screening mammogram for malignant neoplasm of breast (principal); R92.323 Mammographic fibroglandular density, bilateral breasts
CPT/HCPCS: 77063; 77067

== ENCOUNTER → 2024-11-14 08:19 | Outpatient (CLI) | payer MEDICARE, SELFPAY ==
[2024-11-14 08:46] LABS: Add Manual Diff / Slide Review NO; Basophils Absolute Auto 0 /uL (0-100); Basophils Percent Auto 0.9 % (0-2); Eosinophils Absolute Auto 200 /uL (0-450); Hematocrit 38.1 % (36-46); Hemoglobin 12.7 g/dL (12.0-16.0); Lymphocytes Absolute Auto 2000 /uL (1100-4500); Lymphocytes Percent Auto 38.3 % (25-40); Mean Corpuscular HGB Conc 33.3 % (30-36); Monocytes Absolute Auto 400 /uL (0-900); Monocytes Percent Auto 7.6 % (3-14); Neutrophils Absolute Auto 2700 /uL (1500-7000); Neutrophils Percent Auto 50.2 % (50-75); Platelet Count 286 X10^3/uL (150-400); Red Blood Cell Count 3.97 X10^6/uL (4.0-5.2); Red Cell Distribution Width 14.2 % (11.6-14.8); White Blood Cell Count 5.3 X10^3/uL (4.5-11.0)
[2024-11-14 08:56] LABS: Alanine Aminotransferase 26 IU/L (<35); Albumin 4.1 g/dL (3.5-5.0); Albumin Globulin Ratio 1.6 (1.0-2.8); Alkaline Phosphatase 71 U/L (38-126); Aspartate Aminotransferase 32 IU/L (14-36); BUN Creatinine Ratio 11.4 (6-22); Bilirubin Total 0.4 mg/dL (0.2-1.3); Blood Urea Nitrogen 9 mg/dL (7-17); Calcium 9.2 mg/dL (8.4-10.2); Carbon Dioxide 27 mmol/L (22-32); Chloride 106 mmol/L (98-107); Cholesterol 253 mg/dL (140-199); Estimated Glomerular Filt Rate > 60 mL/min (>60); Globulin 2.6 g/dL (1.7-4.1); Glucose 94 mg/dL (70-99); HDL Cholesterol 66 mg/dL (40-60); HEMOLYSIS < 15 (0-50); LDL Cholesterol Calculated 131 mg/dL (<100); Potassium 3.8 mmol/L (3.4-5.1); Sodium 139 mmol/L (137-145); Total Protein 6.7 g/dL (6.3-8.2); Triglycerides 281 mg/dL (35-150)
[2024-11-14 09:24] LABS: Thyroid Stimulating Hormone 1.96 uIU/mL (0.47-4.68)
== END ==
PROVIDERS: PCP Student in an Organized Health Care Education/Training Program; Referring Provider Student in an Organized Health Care Education/Training Program; Visit Provider Student in an Organized Health Care Education/Training Program
DX: E78.5 Hyperlipidemia, unspecified (principal); Z13.9 Encounter for screening, unspecified; I10 Essential (primary) hypertension; E66.3 Overweight
CPT/HCPCS: 36415; 80053; 80061; 84443; 85025